=== PATIENT | male | born 1950 | race Caucasian/White ===

== ENCOUNTER 2025-06-10 07:25 | Outpatient (NON) | payer MEDICARE, OTHER, SELFPAY ==
--- NOTE | 2025-06-10 | S_PTH ---
PATIENT: Lewis Sanderson LOC: [facility] U#:[id number] AGE/SX: 74/M ROOM: RE06/10/[address]: Kingston Rose DO : 1950 BED: DIS: 06/10/2025 SPEC #: [id number] RECD: 06/11/25 08:17 STATUS: KAHLIL REQ #: [id number] RACHEL: 06/10/25 00:[address]: Kingston Rose DEPT: [facility] Surgical RECD BY: Sj Espinosa ENTERED: 06/11/25 08:18 SP TYPE: Surgical OTHR DR: Becca Hansen MD Tissues: A - Colon Polypectomy B - Colon Polypectomy Procedures: Hematoxylin and Eosin Stain Gross and Microscopic Level 4
== END 2025-06-10 07:26 | disposition home or self-care (01) ==
PROVIDERS: PCP Internal Medicine; Visit Provider Surgery
DX: R19.5 Other fecal abnormalities (principal)
CPT/HCPCS: 88305

== ENCOUNTER 2025-06-10 08:36 | Day surgery (SDC) | payer MEDICARE, OTHER, SELFPAY ==
[2025-04-23 09:19] VITALS: BMI 28.7
[2025-06-06 07:53] VITALS: BMI 28.7
[2025-06-10 09:01] VITALS: BMI 27.6
[2025-06-10 09:03] VITALS: BP 177/63; PULSE 58; RESP 20; TEMP 36.6; O2SAT 98
--- NOTE | 2025-06-10 09:21 | PM.IMHP ---
H&P: HPI History of Present Illness Date/Time: 06/10/25 09:21 Chief Complaint: positive Cologuard Narrative: this is a 74-year-old man who presents for colonoscopy. He recently had a Cologuard test which was positive. He has never had a colonoscopy before. He denies any hematochezia or melena. He denies family history of colon cancer. Review of Systems Review of Systems: All systems reviewed & are unremarkable except as noted in HPI and below Constitutional: Constitutional: Denies chills, Denies fever(s), Denies headache(s) and Denies weight loss Eyes: Eyes: Denies change in vision ENT: Denies dizziness, Denies headache(s), Denies neck mass and Denies throat swelling Cardiovascular: Cardiovascular: Denies chest pain, Denies lightheadedness and Denies dyspnea Respiratory: Respiratory: Denies cough, Denies dyspnea and Denies wheezing Gastrointestinal: Gastrointestinal: Denies abdominal pain, Denies change in bowel habits, Denies nausea and Denies vomiting Genitourinary: Genitourinary: Denies hematuria and Denies dysuria Musculoskeletal: Musculoskeletal: Reports as per HPI Integumentary/Breasts: Skin/Breast: Reports as per HPI Neurologic: Denies dizziness and Denies headache(s) Allergic/Immunologic: Allergic/Immunologic: Denies throat swelling and Denies wheezing PMFSH Social History Social History Smoking status: Former smoker Tobacco type: cigarettes Alcohol intake: current Drinks per week: 12 Alcohol use details: beer Substance use type: marijuana Other substance usage details: occasional Living arrangements: with family Spiritual care concerns: No Meds Home Medications and Allergies Home Medications ?Medication ?Instructions ?Recorded ?Confirmed ?Type amlodipine 10 mg tablet 10 mg PO DAILY 06/06/25 06/10/25 History multivitamin with minerals 1 tablet PO DAILY 06/06/25 06/10/25 History Allergies Allergy/AdvReac Type Severity Reaction Status Date / Time No Known Allergies Allergy Verified 06/10/25 08:53 Vital Signs Vital Signs - 24 hr 06/10/25 09:03 Temperature 97.8 F Pulse Rate 58 L Respiratory Rate 20 Blood Pressure 177/63 H Pulse Oximetry 98 Oxygen Delivery Room Air Exam Const: General: no acute distress and alert Orientation/consciousness: patient oriented x3 HENMT: Head: normocephalic and atraumatic Ears: hearing grossly normal bilaterally Face/Nose/Sinus: Normal nares present Mouth: Yes Normal oral and palatal mucosa present Eyes: Periorbital: periorbital findings normal Sclera: sclerae normal EOM: EOMs intact bilaterally Neck: Neck: normal visual inspection, no lymphadenopathy and trachea midline Chest: Chest palpation & inspection: normal inspection of the chest Resp: Effort & Inspection: normal respiratory effort Auscultation: clear to auscultation bilaterally Cardio: Jugular venous distension: no JVD Rate: regular rate Rhythm: regular rhythm Heart sounds: S1 normal heart sound present and S2 normal heart sound present Peripheral pulses: Peripheral pulses 2+ throughout GI: Inspection: normal to inspection GI Palp: Yes Soft to palpation, No Tenderness to palpation present (GI), No Guarding due to palpation present (GI) and No Rebound tenderness present Percussion: Yes normal to percussion Auscultation: normal bowel sounds : General: Yes no CVA tenderness Back/Spine/Pelvis: Back: no CVA tenderness Neuro: General: patient oriented x3, no focal motor deficits and CN's II-XI intact bilaterally Cognition (Neuro): normal cognition Speech: normal speech Motor exam (neuro): 5/5 motor strength present throughout Extrem: General: capillary refill normal and no clubbing, cyanosis or edema Assessment and Plan Assessment and plan (1) Positive colorectal cancer screening using Cologuard test: Code(s): R19.5 - Other fecal abnormalities Status: Acute Assessment and Plan: I have recommended colonoscopy. I have discussed the procedure, risks, benefits, and alternatives. Questions were answered. Patient is agreeable to proceed.
[2025-06-10] MEDS: LACTATED RINGERS 1,000 ML 150 ML IV CONT ×2 (09:25→10:26)
--- NOTE | 2025-06-10 09:29 | P.PNAN_ITS ---
Anes - Initial Pre Proc Eval Procedure: Operation Date: 06/10/25 09:30 Proposed Procedures p Diagnostic Colonoscopy - Kingston Rose DO Date/Time: 06/10/25 09:29 Surgeon: Kingston Rose DO Pre Op Diagnosis: Positive Cologuard Patient Data Age: 74 Gender: M Height: 1.7 m Weight: 80 kg Last Vital Signs Temp 97.8 F 06/10/25 09:03 Pulse 58 L 06/10/25 09:03 Resp 20 06/10/25 09:03 BP 177/63 H 06/10/25 09:03 Pulse Ox 98 06/10/25 09:03 O2 Del Method Room Air 06/10/25 09:03 Allergies Allergy/AdvReac Type Severity Reaction Status Date / Time No Known Allergies Allergy Verified 06/10/25 08:53 Home Medications ?Medication ?Instructions ?Recorded ?Confirmed ?Type amlodipine 10 mg tablet 10 mg PO DAILY 06/06/25 06/10/25 History multivitamin with minerals 1 tablet PO DAILY 06/06/25 06/10/25 History Patient hx anesthesia problems: none Family hx anesthesia problems: none Results Review: All pre-operative results and documents have been reviewed as part of the pre- operative evaluation. [facility] Social History Social History Smoking status: Former smoker Tobacco type: cigarettes Alcohol intake: current Drinks per week: 12 Alcohol use details: beer Substance use type: marijuana Other substance usage details: occasional Living arrangements: with family Spiritual care concerns: No Anes - Eval Final PreProcedure Day of Procedure 06/10/25 09:29 Heart: regular rate and rhythm Lungs: clear to auscultation Airway: Mallampati scale class II Neurological: alert and oriented Last oral intake: >/= 8 hours ASA classification: II Anesthetic plan: proceed Anesthesia type and monitoring: monitored anesthesia care Results Review: All pre-operative results and documents have been reviewed as part of the pre- operative evaluation. Informed Consent: The patient's anesthetic plan and its attendant risks and benefits were discussed with the patient/family/POA. Questions were solicited and answers provided to the satisfaction of the patient/family/POA.
--- NOTE | 2025-06-10 09:57 | WPDANESPN ---
Anes - Prog Note Post-Op Date/Time: 06/10/25 09:57 Vital Signs: Last Vital Signs Temp 97.8 F 06/10/25 09:03 Pulse 58 L 06/10/25 09:03 Resp 20 06/10/25 09:03 BP 177/63 H 06/10/25 09:03 Pulse Ox 98 06/10/25 09:03 O2 Del Method Room Air 06/10/25 09:03 Pain Score (VAS): no I/O: Intake & Output 06/09/25 06/10/25 06/10/25 23:59 07:59 15:59 Intake Total 0 Balance 0 Patient Feedback: Patient satisfied with anesthetic care.
[2025-06-10 10:08] VITALS: BP 112/93; PULSE 56; RESP 15; O2SAT 100
[2025-06-10 10:13] VITALS: BP 96/85; PULSE 53; RESP 15; O2SAT 100
[2025-06-10 10:27] VITALS: BP 121/72; PULSE 59; RESP 15; O2SAT 99
== END 2025-06-10 10:32 | disposition home or self-care (01) ==
PROVIDERS: PCP Internal Medicine; Visit Provider Surgery
PROC: 0DJD8ZZ Inspection of Lower Intestinal Tract, Via Natural or Artificial Opening Endoscopic (ICD-10-PCS; CPT 45378; principal; 2025-06-10 09:30)
DX: R19.5 Other fecal abnormalities (principal); D12.5 Benign neoplasm of sigmoid colon; K63.5 Polyp of colon; K57.30 Diverticulosis of large intestine without perforation or abscess without bleeding
CPT/HCPCS: 45385